=== PATIENT | male | born 1955 | race Caucasian/White ===

== ENCOUNTER 2018-12-03 20:46 | Emergency (ER) | payer SELFPAY ==
[~2018-12-03] VITALS: Ht 172.7 cm; Wt 77.3 kg
[2018-12-03 20:52] VITALS: Ht 172.7 cm; Wt 77.3 kg
[2018-12-03] MEDS ORDERED: LIPITOR40 MG (21:01)
[2018-12-03] MEDS ORDERED: TESSALON PERLE100 MG (21:01)
[2018-12-03] MEDS ORDERED: AZELASTINE137 MCG/0. (21:01)
[2018-12-03] MEDS ORDERED: ANORO ELLIPTA1 EACH INH (21:02)
[2018-12-03] MEDS ORDERED: VENTOLIN HFA18 GM (21:02)
[2018-12-03] MEDS ORDERED: COMBIVENT RESPIM4 GM INH (21:02)
[2018-12-03] MEDS ORDERED: AVODART0.5 MG (21:03)
[2018-12-03] MEDS ORDERED: POTASSIUM CHLOR8 ME1 (21:03)
[2018-12-03] MEDS ORDERED: GLUCOPHAGE500 MG (21:03)
[2018-12-03] MEDS ORDERED: FERROUS SULFAT325 MG (21:03)
[2018-12-03] MEDS ORDERED: PROTONIX40 MG (21:03)
[2018-12-03] MEDS ORDERED: PEPCID AC20 MG (21:04)
[2018-12-03] MEDS ORDERED: BAYER CHEWABLE81 MG (21:04)
[2018-12-03] MEDS ORDERED: NITROSTAT0.4 MG (21:04)
[2018-12-03] MEDS ORDERED: ELIQUIS5 MG (21:04)
[2018-12-03] MEDS ORDERED: NEURONTIN 400400 MG (21:05)
[2018-12-03 21:26] LABS: BASOPHILS 0.2 % (0-2); EOSINOPHILS 2.1 % (0-7); HEMATOCRIT 38.8 % (42.0-54.0); HEMOGLOBIN 12.9 g/dL (13.5-17.5); IMMATURE GRANULOCYTES 0.2 % (0-5); MCH 31.4 pg (26.0-34.0); MCHC 33.2 g/dL (31.0-37.0); MCV 94.4 fL (80.0-100.0); MEAN PLATELET VOLUME 10.3 fL (7.4-10.4); MONOCYTES 7.6 % (2-11); NEUTROPHILS 55.9 % (40-80); PLATELET COUNT 187 10x3/uL (130-400); RBC 4.11 10x6/uL (4.20-6.10); RDW 13.2 % (11.5-14.5); WBC 5.3 10x3/uL (4.8-10.8)
[2018-12-03 21:41] LABS: ALBUMIN 3.1 g/dL (3.4-5.0); ALKALINE PHOSPHATASE 88 U/L (46-116); ALT (SGPT) 14 U/L (10-68); BILIRUBIN - TOTAL 0.29 mg/dL (0.2-1.3); CALC OSMOLALITY 287 mosm/kg (275-300); CALCIUM 8.9 mg/dL (8.5-10.1); CARBON DIOXIDE 27.1 mmol/L (21.0-32.0); CHLORIDE - SERUM 108 mmol/L (98-107); CREATININE - SERUM 1.1 mg/dL (0.6-1.3); GLUCOSE 133 mg/dL (74-106); POTASSIUM - SERUM 3.5 mmol/L (3.5-5.1); PROTEIN - SERUM 6.2 g/dL (6.4-8.2); SODIUM 143 mmol/L (136-145); UREA NITROGEN 16 mg/dL (7-18); eGFR NON AFRICAN AMERICAN 71 mL/min (90-120)
[2018-12-03 21:52] LABS: CKMB 0.5 U/L (0.0-3.6); CREATINE KINASE 49 UL (21-232); TROPONIN-I < 0.017 ng/mL (0.000-0.060)
[2018-12-03 21:53] LABS: APTT 26.1 SECONDS (22.8-39.4); INR 1.12 (0.85-1.17); PROTIME 13.9 SECONDS (11.6-15.0)
[2018-12-03] MEDS ORDERED: ULTRAM50 MG PO (22:15)
[2018-12-03 22:56] VITALS: BP 106/68
== END 2018-12-03 22:56 | disposition home or self-care (01) ==
LOC: D.ER 20:46
PROVIDERS: Emergency Medicine
DX: R07.9 Chest pain, unspecified (principal); I25.10 Atherosclerotic heart disease of native coronary artery without angina pectoris; R06.00 Dyspnea, unspecified; E11.9 Type 2 diabetes mellitus without complications; I50.9 Heart failure, unspecified; Z95.0 Presence of cardiac pacemaker; J44.9 Chronic obstructive pulmonary disease, unspecified; Z99.81 Dependence on supplemental oxygen

== ENCOUNTER 2018-12-10 23:37 | Emergency (ER) | payer SELFPAY ==
[~2018-12-10] VITALS: Ht 172.7 cm; Wt 77.3 kg
[~2018-12-10 23:37] MED LIST: ANORO ELLIPTA1 EACH INH; AVODART0.5 MG; AZELASTINE137 MCG/0.; BAYER CHEWABLE81 MG; COMBIVENT RESPIM4 GM INH; ELIQUIS5 MG; FERROUS SULFAT325 MG; GLUCOPHAGE500 MG; LIPITOR40 MG; NEURONTIN 400400 MG; NITROSTAT0.4 MG; PEPCID AC20 MG; POTASSIUM CHLOR8 ME1; PROTONIX40 MG; TESSALON PERLE100 MG; ULTRAM50 MG PO; VENTOLIN HFA18 GM
[2018-12-10 23:40] VITALS: Ht 172.7 cm; Wt 77.3 kg
[2018-12-11 00:10] LABS: HEMATOCRIT 40.7 % (42.0-54.0); HEMOGLOBIN 13.9 g/dL (13.5-17.5); MCH 31.4 pg (26.0-34.0); MCHC 34.2 g/dL (31.0-37.0); MCV 91.9 fL (80.0-100.0); MEAN PLATELET VOLUME 10.3 fL (7.4-10.4); NEUTROPHILS 57.2 % (40-80); PLATELET COUNT 164 10x3/uL (130-400); RBC 4.43 10x6/uL (4.20-6.10); RDW 13.1 % (11.5-14.5)
[2018-12-11 00:35] LABS: ALBUMIN 3.5 g/dL (3.4-5.0); ALKALINE PHOSPHATASE 96 U/L (46-116); ALT (SGPT) 18 U/L (10-68); BILIRUBIN - TOTAL 0.28 mg/dL (0.2-1.3); CALC OSMOLALITY 285 mosm/kg (275-300); CALCIUM 8.9 mg/dL (8.5-10.1); CARBON DIOXIDE 24.7 mmol/L (21.0-32.0); CHLORIDE - SERUM 106 mmol/L (98-107); CREATININE - SERUM 1.2 mg/dL (0.6-1.3); GLUCOSE 121 mg/dL (74-106); POTASSIUM - SERUM 4.3 mmol/L (3.5-5.1); PROTEIN - SERUM 6.9 g/dL (6.4-8.2); SODIUM 141 mmol/L (136-145); UREA NITROGEN 24 mg/dL (7-18); eGFR NON AFRICAN AMERICAN 64 mL/min (90-120)
[2018-12-11 00:43] LABS: CKMB 0.5 U/L (0.0-3.6); CREATINE KINASE 51 UL (21-232); PRO BNP 41 pg/mL (0-125); TROPONIN-I < 0.017 ng/mL (0.000-0.060)
[2018-12-11 00:46] LABS: APTT 24.4 SECONDS (22.8-39.4); INR 1.07 (0.85-1.17); PROTIME 13.8 SECONDS (11.6-15.0)
[2018-12-11] MEDS ORDERED: VENTOLIN HFA18 GM INH (01:49)
[2018-12-11] MEDS ORDERED: VIBRAMYCIN 100100 MG PO (01:49)
[2018-12-11 01:58] LABS: D-DIMER-QUANTITATIVE < 0.20 mg/L (<0.20)
[2018-12-11 02:44] VITALS: BP 101/64
== END 2018-12-11 02:44 | disposition home or self-care (01) ==
LOC: D.ER 23:37
PROVIDERS: Family Medicine
DX: J44.1 Chronic obstructive pulmonary disease with (acute) exacerbation (principal); Z79.01 Long term (current) use of anticoagulants; E11.9 Type 2 diabetes mellitus without complications; R07.81 Pleurodynia; R06.02 Shortness of breath; Z99.81 Dependence on supplemental oxygen

== ENCOUNTER 2019-03-30 11:48 | Emergency (ER) | payer MEDICARE, MEDICAID ==
[~2019-03-30 11:48] MED LIST changes: +VENTOLIN HFA18 GM INH; +VIBRAMYCIN 100100 MG PO
[2019-03-30 11:50] VITALS: BMI 26.8
[2019-03-30 12:11] LABS: HEMATOCRIT 39.1 % (42.0-54.0); HEMOGLOBIN 13.4 g/dL (13.5-17.5); LYMPHOCYTES 39.3 % (15-50); MCH 31.6 pg (26.0-34.0); MCHC 34.3 g/dL (31.0-37.0); MCV 92.2 fL (80.0-100.0); MEAN PLATELET VOLUME 9.5 fL (7.4-10.4); NEUTROPHILS 52.6 % (40-80); PLATELET COUNT 173 10x3/uL (130-400); RBC 4.24 10x6/uL (4.20-6.10); RDW 14.3 % (11.5-14.5); WBC 4.5 10x3/uL (4.8-10.8)
[2019-03-30 12:27] LABS: INR 1.03 (0.85-1.17)
[2019-03-30 12:28] LABS: ALBUMIN 3.4 g/dL (3.4-5.0); ALKALINE PHOSPHATASE 87 U/L (46-116); ALT (SGPT) 27 U/L (10-68); BILIRUBIN - TOTAL 0.42 mg/dL (0.2-1.3); CALC OSMOLALITY 281 mosm/kg (275-300); CALCIUM 8.9 mg/dL (8.5-10.1); CARBON DIOXIDE 23.9 mmol/L (21.0-32.0); CHLORIDE - SERUM 107 mmol/L (98-107); CREATININE - SERUM 1.2 mg/dL (0.6-1.3); GLUCOSE 106 mg/dL (74-106); POTASSIUM - SERUM 4.2 mmol/L (3.5-5.1); PROTEIN - SERUM 6.9 g/dL (6.4-8.2); SODIUM 140 mmol/L (136-145); UREA NITROGEN 22 mg/dL (7-18); eGFR NON AFRICAN AMERICAN 64 mL/min (90-120)
[2019-03-30 12:37] LABS: CKMB 2.2 U/L (0.0-3.6); CREATINE KINASE 152 UL (21-232); MAGNESIUM - SERUM 1.8 mg/dL (1.8-2.4); TROPONIN-I < 0.017 ng/mL (0.000-0.060)
[2019-03-30 13:53] VITALS: BP 113/64
== END 2019-03-30 13:56 | disposition home or self-care (01) ==
LOC: D.ER 11:48
PROVIDERS: Emergency Medicine
DX: R10.11 Right upper quadrant pain (principal); R07.89 Other chest pain

== ENCOUNTER 2019-09-09 10:45 | Emergency (ER) | payer OTHER, MEDICAID ==
[~2019-09-09] VITALS: Ht 172.7 cm; Wt 77.3 kg
[~2019-09-09 10:45] MED LIST changes: -BAYER CHEWABLE81 MG; +BAYER CHEWABLE81 MG PO; -ELIQUIS5 MG; +ELIQUIS5 MG PO; -LIPITOR40 MG; +LIPITOR40 MG PO; +NEURONTIN 300300 MG PO; -NEURONTIN 400400 MG; -PEPCID AC20 MG; +PEPCID AC20 MG PO; -PROTONIX40 MG; +PROTONIX40 MG PO
[2019-09-09 11:01] VITALS: Ht 172.7 cm; Wt 77.3 kg
[2019-09-09] MEDS ORDERED: ULTRAM50 MG PO (14:31)
[2019-09-09 14:59] VITALS: BP 126/74
[2019-09-16 09:36] VITALS: Ht 172.7 cm; Wt 77.3 kg
== END 2019-09-09 15:00 | disposition home or self-care (01) ==
LOC: D.ER 10:45
DX: G89.29 Other chronic pain (principal)

== ENCOUNTER 2019-09-14 17:59 | Inpatient (IN) | payer OTHER, MEDICAID ==
[~2019-09-14] VITALS: Ht 172.7 cm; Wt 77.1 kg
[2019-09-14 18:00] VITALS: BP 94/65
--- NOTE | 2019-09-14 19:01 | NUR ---
HAND OFF REPORT GIVEN TO PAPO ROBERTSON
[2019-09-14 19:04] LABS: BASOPHILS 0.1 % (0-2); EOSINOPHILS 0.2 % (0-7); HEMATOCRIT 38.7 % (42.0-54.0); HEMOGLOBIN 12.7 g/dL (13.5-17.5); IMMATURE GRANULOCYTES 0.3 % (0-5); LYMPHOCYTES 10.4 % (15-50); MCH 30.1 pg (26.0-34.0); MCHC 32.8 g/dL (31.0-37.0); MCV 91.7 fL (80.0-100.0); MEAN PLATELET VOLUME 10.1 fL (7.4-10.4); RBC 4.22 10x6/uL (4.20-6.10); RDW 14.4 % (11.5-14.5); WBC 14.9 10x3/uL (4.8-10.8)
[2019-09-14 19:05] LABS: PLATELET COUNT 211 10x3/uL (130-400)
[2019-09-14 19:14] LABS: APTT 26.9 SECONDS (22.8-39.4); INR 1.17 (0.85-1.17); PROTIME 14.4 SECONDS (11.6-15.0)
[2019-09-14 19:29] LABS: ALBUMIN 3.1 g/dL (3.4-5.0); ALKALINE PHOSPHATASE 82 U/L (46-116); ALT (SGPT) 30 U/L (10-68); BILIRUBIN - TOTAL 0.68 mg/dL (0.2-1.3); CALC OSMOLALITY 282 mosm/kg (275-300); CALCIUM 8.8 mg/dL (8.5-10.1); CARBON DIOXIDE 26.7 mmol/L (21.0-32.0); CHLORIDE - SERUM 106 mmol/L (98-107); CREATININE - SERUM 1.1 mg/dL (0.6-1.3); GLUCOSE 101 mg/dL (74-106); POTASSIUM - SERUM 3.7 mmol/L (3.5-5.1); PROTEIN - SERUM 6.6 g/dL (6.4-8.2); SODIUM 142 mmol/L (136-145); UREA NITROGEN 12 mg/dL (7-18); eGFR NON AFRICAN AMERICAN 71 mL/min (90-120)
[2019-09-14 19:30] VITALS: BP 94/68
[2019-09-14 19:38] LABS: CREATINE KINASE 108 UL (21-232); MAGNESIUM - SERUM 1.8 mg/dL (1.8-2.4); TROPONIN-I < 0.017 ng/mL (0.000-0.060)
--- NOTE | 2019-09-14 20:07 | NUR ---
PT ASKED FOR URINE SAMPLE, STATES "IM TRYING TO."
[2019-09-14 20:30] VITALS: BP 98/67
--- NOTE | 2019-09-14 20:30 | NUR ---
PT TO CT.
[2019-09-15] VITALS (7 sets, daily range): BP systolic 89–116; BP diastolic 60–77; BMI 25.9
[2019-09-15 02:33] LABS: APPEARANCE CLEAR (CLEAR); BILIRUBIN NEGATIVE (NEGATIVE); COLOR YELLOW (YELLOW); GLUCOSE NEGATIVE (NEGATIVE); KETONE NEGATIVE (NEGATIVE); NITRITE NEGATIVE (NEGATIVE); PROTEIN NEGATIVE (NEGATIVE); SPECIFIC GRAVITY 1.005 (1.005-1.020); UROBILINOGEN NORMAL (NORMAL)
[2019-09-15 05:55] LABS: BASOPHILS 0.1 % (0-2); EOSINOPHILS 1.3 % (0-7); HEMATOCRIT 36.1 % (42.0-54.0); HEMOGLOBIN 11.7 g/dL (13.5-17.5); IMMATURE GRANULOCYTES 0.2 % (0-5); LYMPHOCYTES 17.7 % (15-50); MCH 30.1 pg (26.0-34.0); MCHC 32.4 g/dL (31.0-37.0); MCV 92.8 fL (80.0-100.0); MEAN PLATELET VOLUME 10.4 fL (7.4-10.4); MONOCYTES 5.3 % (2-11); NEUTROPHILS 75.4 % (40-80); PLATELET COUNT 195 10x3/uL (130-400); RBC 3.89 10x6/uL (4.20-6.10); RDW 14.8 % (11.5-14.5); WBC 11.6 10x3/uL (4.8-10.8)
[2019-09-15 06:36] LABS: CALCIUM 8.3 mg/dL (8.5-10.1); CARBON DIOXIDE 25.7 mmol/L (21.0-32.0); CREATININE - SERUM 1.2 mg/dL (0.6-1.3); MAGNESIUM - SERUM 1.9 mg/dL (1.8-2.4); PHOSPHOROUS 3.4 mg/dL (2.5-4.9); POTASSIUM - SERUM 3.7 mmol/L (3.5-5.1)
--- NOTE | 2019-09-15 09:00 | NUR ---
ALERT AND ORIENTED X3 WITH GENERALIZED MUSCLE PAIN. GOOD ROM OF EXT. EIVF INFUSING TO LT. F/A AT PRESCRIBD RATE WITH NO S/S OF INFECTION/INFILTRATION. TELEMETRY INTACT. MORPHINE GIVEN FOR PAIN AND EFFECTIVE. ENCOURAQGED TO USE CALL LIGHT FOR ASSIST.
--- NOTE | 2019-09-15 14:18 | MORECARE ---
CASE MANAGEMENT DISCHARGE SUMMARY PATIENT: KARLA MARTIN UNIT: [id number] ADM DATE: 09/14/19 AGE: 64 : 53 SEX: M ROOM/BED: D.2227 AUTHOR: NICHOLASDOC PHYSICIAN: REFERRING PHYSICIAN: KYLIE ADAMS MD DATE OF SERVICE: 09/15/19 Discharge Plan Patient Name: KARLA MARTIN Facility: [facility]:[place] : 1955 Planned Disposition: Home Anticipated Discharge Date: Discharge Date: Expected LOS: Initial Reviewer: [email or web address] Initial Review Date: 09/15/2019 Generated: 09/15/19 3:18 pm DCPIA - Discharge Planning Initial Assessment Updated by [id number]: Tara Whitley on 09/15/19 2:18 pm * Is the patient Alert and Oriented? Yes * How many steps to enter\exit or inside your home? 0/0 * PCP Imani De La Rosa in [place] * Pharmacy [facility] on [facility] * Preadmission Environment Home with Family * ADLs Partial Dependent * Partial ADLs (Assistance needed) Ambulation Bathing Dressing Medication Management * Equipment Cane Other Shower Chair * Other Equipment Walking boot * List name and contact numbers for known caregivers / representatives who currently or will assist patient after discharge: Jie DTR - [phone] Jered Arreola [facility] [phone] * Verbal permission to speak to the caregivers and representatives has been obtained from the patient. Yes * Community resources currently utilized None * Additional services required to return to the preadmission environment? Yes * Can the patient safely return to the preadmission environment? Yes * Has this patient been hospitalized within the prior 30 days at any hospital? No Coverage Notice Reviewer: [id number] Keyona Whitley Notice Issued Date-Time: 09/15/2019 13:45 Notice Type: Medicare Outpatient Observation Notice Notice Delivered To: Patient Relationship to Patient: Self Occupational Health Technician Name: Delivery Method: HAND - Hand Delivered Aleida Days: Prior Verbal Notification: Recipient Understood Notice: Yes Recipient Signature: Yes Med Rec Note Co-signed by Attending: Coverage Notice Comment: RAMÍREZ explained, signed, given, copy placed in MR Reviewer: [id number] Keyona Whitley Notice Issued Date-Time: 09/15/2019 14:03 Notice Type: Patient Choice Letter Notice Delivered To: Patient Relationship to Patient: Self Occupational Health Technician Name: Delivery Method: HAND - Hand Delivered Aleida Days: Prior Verbal Notification: Recipient Understood Notice: Yes Recipient Signature: Yes Med Rec Note Co-signed by Attending: Coverage Notice Comment: JOSE F for Gaudencio Patient Name: KARLA MARTIN Page [id number] at 1418 All edits/amendments must be made on the electronic document DICTATION DATE: 09/15/191417 : AGUEDA 09/15/191417 RPT#: [id number] DC DATE: STATUS: ADM IN [facility] [address] [place] [address] END OF REPORT
--- NOTE | 2019-09-15 14:29 | MORECARE ---
CASE MANAGEMENT DISCHARGE SUMMARY PATIENT: KARLA MARTIN UNIT: [id number] ADM DATE: 09/14/19 AGE: 64 : 53 SEX: M ROOM/BED: D.2227 AUTHOR: NICHOLASDOC PHYSICIAN: REFERRING PHYSICIAN: KYLIE ADAMS MD DATE OF SERVICE: 09/15/19 Discharge Plan Patient Name: KARLA MARTIN Facility: [facility]:[place] : 1955 Planned Disposition: Home Anticipated Discharge Date: Discharge Date: Expected LOS: Initial Reviewer: [id number] Initial Review Date: 09/15/2019 Generated: 09/15/19 3:29 pm Comments DCP- Discharge Planning Updated by [id number]: Tara Whitley on 09/15/19 1:[address] Patient Name: KARLA MARTIN Admission Status: ER Accout number: [id number] Admission Date: 09-14-2019 : 1955 Admission Diagnosis: Attending: KYLIE ADAMS Current LOS: 1 Anticipated DC Date: Planned Disposition: Home Primary Insurance: [employer] Discharge Planning Comments: CM met with patient to discuss discharge planning/needs, he is alone in the room. He states he lives with his daughter in a one story home. He states his daughter assists him with "washing my back", dressing and medication management. States that he broke his foot about a month ago and has been walking with a cane and a walking boot. He states that he no longer drives, so he mostly walks to where he needs to go. He states he is trying to purchase a scooter so he can get around better. I informed him that his family may be able to look at [employer] for needed medical equipment that insurance will not pay for. I discussed rehab, SNF, home health and DME and he states other than oxygen, he does not have any need. Walk test was done and he is 86% on room air. I called Nadeem with Gaudencio and she states she will be here this afternoon. CM will cotninue to follow and assist with discharge plannig/needs. Material Damage Appraiser: Tara Whitley DCPIA - Discharge Planning Initial Assessment Updated by [id number]: Tara Whitley on 09/15/19 2:18 pm * Is the patient Alert and Oriented? Yes * How many steps to enter\\exit or inside your home? 0/0 * PCP Imani De La Rosa in [place] * [facility]acy [facility] * Preadmission Environment Home with Family * ADLs Partial Dependent * Partial ADLs (Assistance needed) Ambulation Bathing Dressing Medication Management * Equipment Cane Other Shower Chair * Other Equipment Walking boot * List name and contact numbers for known caregivers / representatives who currently or will assist patient after discharge: Jie DTR - [phone] Jered Arreola [facility] - [phone] * Verbal permission to speak to the caregivers and representatives has been obtained from the patient. Yes * Community resources currently utilized None * Additional services required to return to the preadmission environment? Yes * Can the patient safely return to the preadmission environment? Yes * Has this patient been hospitalized within the prior 30 days at any hospital? No Coverage Notice Reviewer: [id number] Keyona Whitley Notice Issued Date-Time: 09/15/2019 13:45 Notice Type: Medicare Outpatient Observation Notice Notice Delivered To: Patient Relationship to Patient: Self Manager Nuclear Name: Delivery Method: HAND - Hand Delivered Aleida Days: Prior Verbal Notification: Recipient Understood Notice: Yes Recipient Signature: Yes Med Rec Note Co-signed by Attending: Coverage Notice Comment: DARRELL explained, signed, given, copy placed in MR Reviewer: [id number] Keyona Whitley Notice Issued Date-Time: 09/15/2019 14:03 Notice Type: Patient Choice Letter Notice Delivered To: Patient Relationship to Patient: Self Manager Nuclear Name: Delivery Method: HAND - Hand Delivered Aleida Days: Prior Verbal Notification: Recipient Understood Notice: Yes Recipient Signature: Yes Med Rec Note Co-signed by Attending: Coverage Notice Comment: JOSE F for Gaudencio De La O DP export: 09/15/19 1:18 Patient Name: KARLA MARTIN Page 15533 at 1429 All edits/amendments must be made on the electronic document DICTATION DATE: 09/15/191428 BATHHOUSE ATTENDANT: AGUEDA 09/15/191428 RPT#: [id number] DC DATE: STATUS: ADM IN [facility] [address] [place] [address] END OF REPORT
--- NOTE | 2019-09-15 14:39 | MORECARE ---
CASE MANAGEMENT DISCHARGE SUMMARY PATIENT: KARLA MARTIN UNIT: [id number] ADM DATE: 09/14/19 AGE: 64 : 53 SEX: M ROOM/BED: D.2227 AUTHOR: FELISHA PETERSON PHYSICIAN: REFERRING PHYSICIAN: KYLIE ADAMS MD DATE OF SERVICE: 09/15/19 Discharge Plan Patient Name: KARLA MARTIN Facility: [facility]:[place] : 1955 Planned Disposition: Home Anticipated Discharge Date: Discharge Date: Expected LOS: Initial Reviewer: [email or web address] Initial Review Date: 09/15/2019 Generated: 09/15/19 3:38 pm Comments DCP- Discharge Planning Updated by [email or web address]: Tara Whitley on 09/15/19 1:[address] Patient is in a chronic stable state prior to discharge. CM will cotninue to follow and assist with discharge planning/needs. DCP- Discharge Planning Updated by [id number]: Tara Whitley on 09/15/19 1:[address] Patient Name: KARLA MARTIN Admission Status: ER Accout number: [id number] Admission Date: 09-14-2019 : 1955 Admission Diagnosis: Attending: KYLIE ADAMS Current LOS: 1 Anticipated DC Date: Planned Disposition: Home Primary Insurance: [employer] Discharge Planning Comments: CM met with patient to discuss discharge planning/needs, he is alone in the room. He states he lives with his daughter in a one story home. He states his daughter assists him with "washing my back", dressing and medication management. States that he broke his foot about a month ago and has been walking with a cane and a walking boot. He states that he no longer drives, so he mostly walks to where he needs to go. He states he is trying to purchase a scooter so he can get around better. I informed him that his family may be able to look at [employer] and [employer] for needed medical equipment that insurance will not pay for. I discussed rehab, SNF, home health and DME and he states other than oxygen, he does not have any need. Walk test was done and he is 86% on room air. I called Nadeem with [employer] and she states she will be here this afternoon. CM will cotninue to follow and assist with discharge plannig/needs. Sport Internship: Tara Whitley DCPIA - Discharge Planning Initial Assessment Updated by [id number]: Tara Whitley on 09/15/19 2:18 pm * Is the patient Alert and Oriented? Yes * How many steps to enter\\exit or inside your home? 0/0 * PCP Imani De La Rosa in [place] * [facility] * Preadmission Environment Home with Family * ADLs Partial Dependent * Partial ADLs (Assistance needed) Ambulation Bathing Dressing Medication Management * Equipment Cane Other Shower Chair * Other Equipment Walking boot * List name and contact numbers for known caregivers / representatives who currently or will assist patient after discharge: Jie - DTR - [phone] Jered Arreola [facility] - [phone] * Verbal permission to speak to the caregivers and representatives has been obtained from the patient. Yes * Community resources currently utilized None * Additional services required to return to the preadmission environment? Yes * Can the patient safely return to the preadmission environment? Yes * Has this patient been hospitalized within the prior 30 days at any hospital? No Coverage Notice Reviewer: [id number] Keyona Whitley Notice Issued Date-Time: 09/15/2019 13:45 Notice Type: Medicare Outpatient Observation Notice Notice Delivered To: Patient Relationship to Patient: Self Plant Tender Name: Delivery Method: HAND - Hand Delivered Aleida Days: Prior Verbal Notification: Recipient Understood Notice: Yes Recipient Signature: Yes Med Rec Note Co-signed by Attending: Coverage Notice Comment: DARRELL explained, signed, given, copy placed in MR Reviewer: [id number] Keyona Whitley Notice Issued Date-Time: 09/15/2019 14:03 Notice Type: Patient Choice Letter Notice Delivered To: Patient Relationship to Patient: Self Plant Tender Name: Delivery Method: HAND - Hand Delivered Aleida Days: Prior Verbal Notification: Recipient Understood Notice: Yes Recipient Signature: Yes Med Rec Note Co-signed by Attending: Coverage Notice Comment: JOSE F for Gaudencio Jairon DP export: 09/15/19 1:29 Patient Name: KARLA MARTNI Page 70051 at 1439 All edits/amendments must be made on the electronic document DICTATION DATE: 09/15/191437 MAGNETIC RESONANCE IMAGING DIRECTOR: AGUEDA 09/15/191437 RPT#: [id number] MS DATE: STATUS: ADM IN [facility] [address] [place] [address] END OF REPORT
--- NOTE | 2019-09-15 15:43 | MORECARE ---
CASE MANAGEMENT DISCHARGE SUMMARY PATIENT: KARLA MARTIN UNIT: [id number] ADM DATE: 09/14/19 AGE: 64 : 53 SEX: M ROOM/BED: D.2227 AUTHOR: FELISHA PETERSON PHYSICIAN: REFERRING PHYSICIAN: KYLIE ADAMS MD DATE OF SERVICE: 09/15/19 Discharge Plan Patient Name: KARLA MARTIN Facility: [facility]:[place] : 1955 Planned Disposition: Home Anticipated Discharge Date: Discharge Date: Expected LOS: Initial Reviewer: [id number] Initial Review Date: 09/15/2019 Generated: 09/15/19 4:43 pm Comments DCP- Discharge Planning Updated by [email or web address]: Tara Whitley on 09/15/19 1:[address] Patient is in a chronic stable state prior to discharge. CM will cotninue to follow and assist with discharge planning/needs. DCP- Discharge Planning Updated by [id number]: Tara Gutierrez on 09/15/19 1:[address] Patient Name: KARLA MARTIN Admission Status: ER Accout number: [id number] Admission Date: 09-14-2019 : 1955 Admission Diagnosis: Attending: KYLIE ADAMS Current LOS: 1 Anticipated DC Date: Planned Disposition: Home Primary Insurance: [employer] Discharge Planning Comments: CM met with patient to discuss discharge planning/needs, he is alone in the room. He states he lives with his daughter in a one story home. He states his daughter assists him with "washing my back", dressing and medication management. States that he broke his foot about a month ago and has been walking with a cane and a walking boot. He states that he no longer drives, so he mostly walks to where he needs to go. He states he is trying to purchase a scooter so he can get around better. I informed him that his family may be able to look at [employer] and [employer] for needed medical equipment that insurance will not pay for. I discussed rehab, SNF, home health and DME and he states other than oxygen, he does not have any need. Walk test was done and he is 86% on room air. I called Nadeem with G[employer]enc[employer] and she states she will be here this afternoon. CM will cotninue to follow and assist with discharge plannig/needs. Network Systems Administrator: Tara Whitley DCPIA - Discharge Planning Initial Assessment Updated by [email or web address]: Tara Whitley on 09/15/19 2:18 pm * Is the patient Alert and Oriented? Yes * How many steps to enter\\exit or inside your home? 0/0 * PCP Imani De La Rosa in [place] * [facility] * Preadmission Environment Home with Family * ADLs Partial Dependent * Partial ADLs (Assistance needed) Ambulation Bathing Dressing Medication Management * Equipment Cane Other Shower Chair * Other Equipment Walking boot * List name and contact numbers for known caregivers / representatives who currently or will assist patient after discharge: Jie - DTR - [phone] Jered Arreola [facility] [phone] * Verbal permission to speak to the caregivers and representatives has been obtained from the patient. Yes * Community resources currently utilized None * Additional services required to return to the preadmission environment? Yes * Can the patient safely return to the preadmission environment? Yes * Has this patient been hospitalized within the prior 30 days at any hospital? No External Providers External Provider: OTHER-OTHER Next Contact Date: Service Request Date: Service Type: Resolution: Reviewer: Comments: Coverage Notice Reviewer: [id number] Keyona Whitley Notice Issued Date-Time: 09/15/2019 13:45 Notice Type: Medicare Outpatient Observation Notice Notice Delivered To: Patient Relationship to Patient: Self Automobile Rental Agent Name: Delivery Method: HAND - Hand Delivered Aleida Days: Prior Verbal Notification: Recipient Understood Notice: Yes Recipient Signature: Yes Med Rec Note Co-signed by Attending: Coverage Notice Comment: DARRELL explained, signed, given, copy placed in MR Reviewer: [id number] Keyona Whitley Notice Issued Date-Time: 09/15/2019 14:03 Notice Type: Patient Choice Letter Notice Delivered To: Patient Relationship to Patient: Self Automobile Rental Agent Name: Delivery Method: HAND - Hand Delivered Aleida Days: Prior Verbal Notification: Recipient Understood Notice: Yes Recipient Signature: Yes Med Rec Note Co-signed by Attending: Coverage Notice Comment: JOSE F for Gaudencio Last DP export: 09/15/19 1:39 Patient Name: KARLA MARTIN Page [id number] at 1543 All edits/amendments must be made on the electronic document DICTATION DATE: 09/15/191542 SUPERVISOR POULTRY FARM: AGUEDA 09/15/191542 RPT#: [id number] DC DATE: STATUS: ADM IN [facility] [address] [place] [address] END OF REPORT
[2019-09-16] VITALS: BP 99/61
--- NOTE | 2019-09-16 01:21 | NUR ---
PT RESTING IN BED. EYES CLOSED. NO SIGNS OF DISTRESS. BREATHING EVEN AND UNLABORED. IV SITE LT FA DRESSING CLEAN DRY AND INTACT. NO SIGNS OF INFECTION. SKIN CLEAN DRY AND INTACT. 2LO2 NASAL CANNULA. BOWEL SOUNDS ACTIVE. TELE MONITOR ON 64 NORMAL SINUS. SKIN CLEAN DRY AND INTACT. WILL CONTINUE PLAN OF CARE. CALL LIGHT IN REACH. BED LOWERED AND LOCKED. BED RAILS UPX2. BED ALARM ON.
--- NOTE | 2019-09-16 01:49 | NUR ---
I have reviewed this patient and I concur with the Shift Assessment completed by the Licensed Practical Nurse today this shift.
[2019-09-16 04:00] VITALS: BP 124/80
[2019-09-16 05:15] LABS: BASOPHILS 0.1 % (0-2); EOSINOPHILS 2.3 % (0-7); HEMATOCRIT 36.9 % (42.0-54.0); HEMOGLOBIN 11.6 g/dL (13.5-17.5); IMMATURE GRANULOCYTES 0.1 % (0-5); MCH 29.4 pg (26.0-34.0); MCHC 31.4 g/dL (31.0-37.0); MCV 93.7 fL (80.0-100.0); MEAN PLATELET VOLUME 10.3 fL (7.4-10.4); MONOCYTES 6.3 % (2-11); NEUTROPHILS 68.2 % (40-80); PLATELET COUNT 217 10x3/uL (130-400); RBC 3.94 10x6/uL (4.20-6.10); RDW 14.6 % (11.5-14.5)
[2019-09-16 05:19] LABS: WBC 6.8 10x3/uL (4.8-10.8)
[2019-09-16 05:40] LABS: CALC OSMOLALITY 281 mosm/kg (275-300); CALCIUM 8.2 mg/dL (8.5-10.1); CARBON DIOXIDE 23.8 mmol/L (21.0-32.0); CHLORIDE - SERUM 110 mmol/L (98-107); GLUCOSE 88 mg/dL (74-106); MAGNESIUM - SERUM 1.7 mg/dL (1.8-2.4); PHOSPHOROUS 3.4 mg/dL (2.5-4.9); POTASSIUM - SERUM 3.7 mmol/L (3.5-5.1); SODIUM 142 mmol/L (136-145); UREA NITROGEN 12 mg/dL (7-18); eGFR NON AFRICAN AMERICAN 79 mL/min (90-120)
--- NOTE | 2019-09-16 08:00 | NUR ---
ALERT AND ORIENTED X3 WITH GOOD ROM OF EXT. X4 WITH GENERALIZED WEAKNESS. LUNGS CTA WITH HRRR. TELEMETRY INTACT. FALL PRECAUTIONS IN PLACE AND ENCOURAGED INCENTIVE SPIROMETRY. IVF INFUSING AT PRESCRIBED RATE WITH NO S/S OF INFECTION/ INFILTRATION. ENCOURAGED TO USE CALL LIGHT FOR ASSIST.
[2019-09-16 08:28] VITALS: BP 98/58
[2019-09-16 09:36] VITALS: Ht 172.7 cm; Wt 77.1 kg
--- NOTE | 2019-09-16 11:00 | MORECARE ---
CASE MANAGEMENT DISCHARGE SUMMARY PATIENT: KARLA MARTIN UNIT: [id number] ADM DATE: 09/15/19 AGE: 64 : 51 SEX: M ROOM/BED: D.2227 AUTHOR: FELISHA PETERSON PHYSICIAN: REFERRING PHYSICIAN: KYLIE ADAMS MD DATE OF SERVICE: 09/16/19 Discharge Plan Patient Name: KARLA MARTIN Facility: [facility]:[place] : 1955 Planned Disposition: Home Anticipated Discharge Date: Discharge Date: Expected LOS: Initial Reviewer: [id number] Initial Review Date: 09/15/2019 Generated: 09/16/19 12:00 pm DCP- Discharge Planning Updated by [id number]: Rosangela Ceja on 09/16/19 9:[address] Telephone call from familia Busch/Gaudencio requesting a CB when patient has a discharge order. Portable O2 has been delivered to patient's room and home O2 will be delivered upon notification of DC order. . DCP- Discharge Planning Updated by [id number]: Tara Whitley on 09/15/19 1:[address] Patient is in a chronic stable state prior to discharge. CM will cotninue to follow and assist with discharge planning/needs. DCP- Discharge Planning Updated by [id number]: Tarakatrina Whitley on 09/15/19 1:[address] Patient Name: KARLA MARTIN Admission Status: ER Accout number: [id number] Admission Date: 09-14-2019 : 1955 Admission Diagnosis: Attending: KYLIE ADAMS Current LOS: 1 Anticipated DC Date: Planned Disposition: Home Primary Insurance: [employer] Discharge Planning Comments: CM met with patient to discuss discharge planning/needs, he is alone in the room. He states he lives with his daughter in a one story home. He states his daughter assists him with "washing my back", dressing and medication management. States that he broke his foot about a month ago and has been walking with a cane and a walking boot. He states that he no longer drives, so he mostly walks to where he needs to go. He states he is trying to purchase a scooter so he can get around better. I informed him that his family may be able to look at [facility] [employer] and [facility] [employer] for needed medical equipment that insurance will not pay for. I discussed rehab, SNF, home health and DME and he states other than oxygen, he does not have any need. Walk test was done and he is 86% on room air. I called Nadeem with Gaudencio and she states she will be here this afternoon. CM will cotninue to follow and assist with discharge plannig/needs. Industrial Relations Counselor: Tara Whitley DCPIA - Discharge Planning Initial Assessment Updated by [id number]: Tara Whitley on 09/15/19 2:18 pm * Is the patient Alert and Oriented? Yes * How many steps to enter\\exit or inside your home? 0/0 * PCP Imani De La Rosa in [place] * Pharmacy [facility] * Preadmission Environment Home with Family * ADLs Partial Dependent * Partial ADLs (Assistance needed) Ambulation Bathing Dressing Medication Management * Equipment Cane Other Shower Chair * Other Equipment Walking boot * List name and contact numbers for known caregivers / representatives who currently or will assist patient after discharge: [facility] - [phone] Jered Arreola [facility] [phone] * Verbal permission to speak to the caregivers and representatives has been obtained from the patient. Yes * Community resources currently utilized None * Additional services required to return to the preadmission environment? Yes * Can the patient safely return to the preadmission environment? Yes * Has this patient been hospitalized within the prior 30 days at any hospital? No Coverage Notice Reviewer: [id number] Keyona Whitley Notice Issued Date-Time: 09/15/2019 13:45 Notice Type: Medicare Outpatient Observation Notice Notice Delivered To: Patient Relationship to Patient: Self Windsmith Name: Delivery Method: HAND - Hand Delivered Aleida Days: Prior Verbal Notification: Recipient Understood Notice: Yes Recipient Signature: Yes Med Rec Note Co-signed by Attending: Coverage Notice Comment: DARRELL explained, signed, given, copy placed in MR Reviewer: [id number] Keyona Whitley Notice Issued Date-Time: 09/15/2019 14:03 Notice Type: Patient Choice Letter Notice Delivered To: Patient Relationship to Patient: Self Windsmith Name: Delivery Method: HAND - Hand Delivered Aleida Days: Prior Verbal Notification: Recipient Understood Notice: Yes Recipient Signature: Yes Med Rec Note Co-signed by Attending: Coverage Notice Comment: JOSE F for Gaudencio Last DP export: 09/15/19 2:43 Patient Name: KARLA MARTIN Page [phone] at 1100 All edits/amendments must be made on the electronic document DICTATION DATE: 09/16/19 1100 KILN FIRER HELPER: AGUEDA 09/16/19 1100 RPT#: [id number] DC DATE: STATUS: ADM IN [facility] [address] [place] [address] END OF REPORT
[2019-09-16 13:15] VITALS: BP 121/78
[2019-09-16 16:36] VITALS: BP 121/77
--- NOTE | 2019-09-16 18:30 | NUR ---
PT C/O TENDERNESS TO CHEST WALL ON PALPATION. SKIN WARM AND DRY. LUNGS CTA MORPHINE GIVEN AND EFFECTIVE FOR PAIN MANAGEMENT. RESP. EVEN AND UNLABORED.
[2019-09-16 20:22] VITALS: BP 109/71
[2019-09-17 00:21] VITALS: BP 117/78
--- NOTE | 2019-09-17 02:04 | NUR ---
PT RESTING IN BED. EYES CLOSED. NO SIGNS OF DISTRESS. BREATHING EVEN AND UNLABORED. IV SITE RT UPPER ARM. DRESSING CLEAN DRY AND INTACT. NO SIGNS OF INFECTION. SKIN CLEAN DRY AND INTACT. 2LO2 NASAL CANNULA. LUNG SOUNDS CLEAR. BOWEL SOUNDS ACTIVE. SCDS ON. WILL CONTINUE PLAN OF CARE. CALL LIGHT IN REACH. BED LOWERED AND LOCKED. BED RAILS UPX2.
[2019-09-17 04:45] VITALS: BP 116/76
[2019-09-17 06:20] LABS: BASOPHILS 0.2 % (0-2); EOSINOPHILS 2.7 % (0-7); HEMATOCRIT 36.9 % (42.0-54.0); HEMOGLOBIN 11.8 g/dL (13.5-17.5); IMMATURE GRANULOCYTES 0.2 % (0-5); LYMPHOCYTES 32.2 % (15-50); MCH 29.7 pg (26.0-34.0); MCV 92.9 fL (80.0-100.0); MEAN PLATELET VOLUME 10.5 fL (7.4-10.4); MONOCYTES 7.2 % (2-11); NEUTROPHILS 57.5 % (40-80); PLATELET COUNT 223 10x3/uL (130-400); RBC 3.97 10x6/uL (4.20-6.10); RDW 14.4 % (11.5-14.5); WBC 5.3 10x3/uL (4.8-10.8)
[2019-09-17 06:37] LABS: CALC OSMOLALITY 282 mosm/kg (275-300); CALCIUM 8.3 mg/dL (8.5-10.1); CARBON DIOXIDE 24.6 mmol/L (21.0-32.0); CHLORIDE - SERUM 110 mmol/L (98-107); CREATININE - SERUM 0.9 mg/dL (0.6-1.3); GLUCOSE 104 mg/dL (74-106); MAGNESIUM - SERUM 1.9 mg/dL (1.8-2.4); PHOSPHOROUS 3.6 mg/dL (2.5-4.9); POTASSIUM - SERUM 3.9 mmol/L (3.5-5.1); SODIUM 142 mmol/L (136-145); UREA NITROGEN 12 mg/dL (7-18); eGFR NON AFRICAN AMERICAN 90 mL/min (90-120)
--- NOTE | 2019-09-17 07:42 | NUR ---
ALERT AND ORIENTED. LUNGS DIMINISHED TO BLL. HEART SOUNDS S1 AND S2 HEARD IN ALL GARBER. BOWEL SOUNDS ACTIVE X 4. SKIN INTACT WITHOUT REDNESS. IV TO ARGENIS PATENT WITHOUT REDNESS. O2 IN PLACE AT 2L. DENIES PAIN. DENIES NEEDS. BED LOW. CALL UMANZOR AND PERSONAL ITEMS IN REACH. WILL CONTINUE TO MONITOR.
[2019-09-17 08:25] VITALS: BP 105/69
--- NOTE | 2019-09-17 09:48 | NUR ---
TELEMETRY SHOWS SR 61.
--- NOTE | 2019-09-17 09:58 | NUR ---
RESTING IN BED. DENIES NEEDS. WILL CONTINUE TO MONITOR.
[2019-09-17 12:38] VITALS: BP 119/71
--- NOTE | 2019-09-17 12:55 | NUR ---
UP IN CHAIR AT BEDSIDE EATING LUNCH. C/O NAUSEA. PRN ZOFRAN GIVEN. DENIES FURTHER NEEDS.
--- NOTE | 2019-09-17 15:33 | NUR ---
RESTING IN BED. DENIES NEEDS. WILL CONTINUE TO MONITOR.
[2019-09-17 16:09] VITALS: BP 100/64
--- NOTE | 2019-09-17 16:52 | NUR ---
RESTING IN BED. DENIES NEEDS. BED LOW. FALL PRECAUTIONS IN PLACE. CALL UMANZOR AND PERSONAL ITEMS IN REACH. WILL CONTINUE TO MONITOR.
--- NOTE | 2019-09-17 19:15 | NUR ---
RESTING WITH EYES CLOSED WHEN ENTERING THE ROOM. AROUSES TO VERBAL STIMULI. PATIENT ALERT AND ORIENTED WHEN WOKEN. DENIES PAIN AT THIS TIME. WEARING 2 L NASAL CANNULA. LEFT LOWER LOBE PRESENTS WITH SLIGHT CRACKLES UPON AUSCULTATION. BILATERAL LOBES SOUND DIMINISHED. PATIENT HAS A RARE NON PRODUCTIVE COUGH. HAS OLD FRACTURE TO THE LEFT LOWER EXTREMETY HAS BOOT IN ROOM BUT NOT CURRENTLY WEARING. SCD'S ARE ON. FALL PRECAUTIONS IN PLACE. RIGHT UPPER ARM IV THAT IS INFUSING NS @ 75. SPOKE WITH PATIENT ABOUT UPCOMING MEDICATIONS. DENIES NEED FOR FURTHER EDUCATION. WEARING TELE MONITOR. CURRENTLY 97 SINUS RHYTHM. PATIENT HAS CALL LIGHT IN HAND. VERBALIZES HOW TO USE. CPOC.
[2019-09-17 21:09] VITALS: BP 115/73
--- NOTE | 2019-09-17 21:30 | NUR ---
ADMINISTERED HS MEDICATIONS. PATIENT REQUESTED PRN PAIN MEDICINE. ADMINISTERED PER ORER. TOLERATED WELL. DENIES FURTHER NEEDS.
[2019-09-18 00:53] VITALS: BP 109/66
--- NOTE | 2019-09-18 02:34 | NUR ---
I have reviewed this patient and I concur with the Shift Assessment completed by the Licensed Practical Nurse today this shift.
[2019-09-18 04:47] VITALS: BP 126/79
[2019-09-18 05:31] LABS: CALC OSMOLALITY 286 mosm/kg (275-300); CALCIUM 8.5 mg/dL (8.5-10.1); CARBON DIOXIDE 25.7 mmol/L (21.0-32.0); CHLORIDE - SERUM 111 mmol/L (98-107); CREATININE - SERUM 0.9 mg/dL (0.6-1.3); GLUCOSE 81 mg/dL (74-106); MAGNESIUM - SERUM 1.8 mg/dL (1.8-2.4); PHOSPHOROUS 3.7 mg/dL (2.5-4.9); POTASSIUM - SERUM 3.9 mmol/L (3.5-5.1); SODIUM 145 mmol/L (136-145); UREA NITROGEN 11 mg/dL (7-18); eGFR NON AFRICAN AMERICAN 90 mL/min (90-120)
[2019-09-18 06:07] LABS: BASOPHILS 0.2 % (0-2); EOSINOPHILS 1.6 % (0-7); HEMATOCRIT 37.1 % (42.0-54.0); HEMOGLOBIN 11.8 g/dL (13.5-17.5); IMMATURE GRANULOCYTES 0.2 % (0-5); LYMPHOCYTES 31.9 % (15-50); MCH 29.3 pg (26.0-34.0); MCHC 31.8 g/dL (31.0-37.0); MCV 92.1 fL (80.0-100.0); MEAN PLATELET VOLUME 10.7 fL (7.4-10.4); MONOCYTES 7.5 % (2-11); NEUTROPHILS 58.6 % (40-80); PLATELET COUNT 232 10x3/uL (130-400); RBC 4.03 10x6/uL (4.20-6.10); RDW 14.5 % (11.5-14.5); WBC 6.1 10x3/uL (4.8-10.8)
--- NOTE | 2019-09-18 07:30 | NUR ---
PT C/O PAIN DUE TO PNA, ADMINISTERED PRN PAIN MEDICATION, NO OTHER NEEDS VOICED, CONTINUE WITH PLAN OF CARE/
[2019-09-18 08:01] VITALS: BP 115/48
--- NOTE | 2019-09-18 11:01 | NUR ---
LYING IN BED,WITHOUT NEEDS.CALL LIGHT IN REACH.
[2019-09-18] MEDS ORDERED: LEVAQUIN750 MG PO (11:40)
--- NOTE | 2019-09-18 11:56 | MORECARE ---
CASE MANAGEMENT DISCHARGE SUMMARY PATIENT: KARLA MARTIN UNIT: [id number] ADM DATE: 09/15/19 AGE: 64 : 53 SEX: M ROOM/BED: D.2227 AUTHOR: FELISHA PETERSON PHYSICIAN: REFERRING PHYSICIAN: KYLIE ADAMS MD DATE OF SERVICE: 09/18/19 Discharge Plan Patient Name: KARLA MARTIN Facility: [facility]:[place] : 1955 Planned Disposition: Home Anticipated Discharge Date: Discharge Date: Expected LOS: Initial Reviewer: [email or web address] Initial Review Date: 09/15/2019 Generated: 09/18/19 12:56 pm DCP- Discharge Planning Updated by [email or web address]: Rosangela Ceja on 09/16/19 9:[address] Telephone call from familia Busch/Gaudencio requesting a CB when patient has a discharge order. Portable O2 has been delivered to patient's room and home O2 will be delivered upon notification of DC order. . DCP- Discharge Planning Updated by [email or web address]: Tara Whitley on 09/15/19 1:[address] Patient is in a chronic stable state prior to discharge. CM will cotninue to follow and assist with discharge planning/needs. DCP- Discharge Planning Updated by [email or web address]: Tarakatrina Whitley on 09/15/19 1:[address] Patient Name: KARLA MARTIN Admission Status: ER Accout number: [id number] Admission Date: 09-14-2019 : 1955 Admission Diagnosis: Attending: KYLIE ADAMS Current LOS: 1 Anticipated DC Date: Planned Disposition: Home Primary Insurance: N[employer]YSMCR Discharge Planning Comments: CM met with patient to discuss discharge planning/needs, he is alone in the room. He states he lives with his daughter in a one story home. He states his daughter assists him with "washing my back", dressing and medication management. States that he broke his foot about a month ago and has been walking with a cane and a walking boot. He states that he no longer drives, so he mostly walks to where he needs to go. He states he is trying to purchase a scooter so he can get around better. I informed him that his family may be able to look at [facility] [employer] and [facility] [employer] for needed medical equipment that insurance will not pay for. I discussed rehab, SNF, home health and DME and he states other than oxygen, he does not have any need. Walk test was done and he is 86% on room air. I called Nadeem with Gaudencio and she states she will be here this afternoon. CM will cotninue to follow and assist with discharge plannig/needs. Insulation Helper: Tara Whitley DCPIA - Discharge Planning Initial Assessment Updated by [id number]: Tara Whitley on 09/15/19 2:18 pm * Is the patient Alert and Oriented? Yes * How many steps to enter\\exit or inside your home? 0/0 * PCP Imani De La Rosa in [place] * Pharmacy [facility] * Preadmission Environment Home with Family * ADLs Partial Dependent * Partial ADLs (Assistance needed) Ambulation Bathing Dressing Medication Management * Equipment Cane Other Shower Chair * Other Equipment Walking boot * List name and contact numbers for known caregivers / representatives who currently or will assist patient after discharge: Jie [facility] - [phone] [facility] [phone] * Verbal permission to speak to the caregivers and representatives has been obtained from the patient. Yes * Community resources currently utilized None * Additional services required to return to the preadmission environment? Yes * Can the patient safely return to the preadmission environment? Yes * Has this patient been hospitalized within the prior 30 days at any hospital? No External Providers External Provider: Tomeka Next Contact Date: Service Request Date: Service Type: Resolution: Reviewer: Comments: Coverage Notice Reviewer: [id number] Keyona Whitley Notice Issued Date-Time: 09/15/2019 13:45 Notice Type: Medicare Outpatient Observation Notice Notice Delivered To: Patient Relationship to Patient: Self Blood Bank Attendant Name: Delivery Method: HAND - Hand Delivered Aleida Days: Prior Verbal Notification: Recipient Understood Notice: Yes Recipient Signature: Yes Med Rec Note Co-signed by Attending: Coverage Notice Comment: DARRELL explained, signed, given, copy placed in MR Reviewer: [id number] Keyona Whitley Notice Issued Date-Time: 09/15/2019 14:03 Notice Type: Patient Choice Letter Notice Delivered To: Patient Relationship to Patient: Self Blood Bank Attendant Name: Delivery Method: HAND - Hand Delivered Aleida Days: Prior Verbal Notification: Recipient Understood Notice: Yes Recipient Signature: Yes Med Rec Note Co-signed by Attending: Coverage Notice Comment: JOSE F for Gaudencio De La O DP export: 09/16/19 10:00 Patient Name: KARLA MARTIN Page 25568 at 1156 All edits/amendments must be made on the electronic document DICTATION DATE: 09/18/19 115 LICENSED VETERINARY TECHNICIAN: AGUEDA 09/18/19 1156 RPT#: [id number] DC DATE: STATUS: ADM IN [facility] [address] [place] [address] END OF REPORT
--- NOTE | 2019-09-18 12:03 | MORECARE ---
CASE MANAGEMENT DISCHARGE SUMMARY PATIENT: KARLA MARTIN UNIT: [id number] ADM DATE: 09/15/19 AGE: 64 : 53 SEX: M ROOM/BED: D.2227 AUTHOR: FELISHA PETERSON PHYSICIAN: REFERRING PHYSICIAN: KYLIE ADAMS MD DATE OF SERVICE: 09/18/19 Discharge Plan Patient Name: KARLA MARTIN Facility: [facility]:[place] : 1955 Planned Disposition: Home Anticipated Discharge Date: Discharge Date: Expected LOS: Initial Reviewer: [email or web address] Initial Review Date: 09/15/2019 Generated: 09/18/19 1:03 pm Comments DCP- Discharge Planning Updated by [email or web address]: Tara Whitley on 09/18/19 11:[address] Patient has his home oxygen in room for discharge, I faxed Gaudencio the new qualifying walk test. He states someone is driving him home. He declines home health again, states "my daughter takes care of me." States he has been getting up fine by himself in the room. CM will continue to follow and assist with discharge planning/needs. DCP- Discharge Planning Updated by [email or web address]: Rosangela Ceja on 09/16/19 9:[address] Telephone call from familia Busch/Gaudencio requesting a CB when patient has a discharge order. Portable O2 has been delivered to patient's room and home O2 will be delivered upon notification of DC order. . DCP- Discharge Planning Updated by [email or web address]: Tara Whitley on 09/15/19 1:[address] Patient is in a chronic stable state prior to discharge. CM will cotninue to follow and assist with discharge planning/needs. DCP- Discharge Planning Updated by [email or web address]: Tara Whitley on 09/15/19 1:[address] Patient Name: KARLA MARTIN Admission Status: ER Accout number: [id number] Admission Date: 09-14-2019 : 1955 Admission Diagnosis: Attending: KYLIE ADAMS Current LOS: 1 Anticipated DC Date: Planned Disposition: Home Primary Insurance: NOVASYSMCR Discharge Planning Comments: CM met with patient to discuss discharge planning/needs, he is alone in the room. He states he lives with his daughter in a one story home. He states his daughter assists him with "washing my back", dressing and medication management. States that he broke his foot about a month ago and has been walking with a cane and a walking boot. He states that he no longer drives, so he mostly walks to where he needs to go. He states he is trying to purchase a scooter so he can get around better. I informed him that his family may be able to look at [employer] for needed medical equipment that insurance will not pay for. I discussed rehab, SNF, home health and DME and he states other than oxygen, he does not have any need. Walk test was done and he is 86% on room air. I called Nadeem with [facility] and she states she will be here this afternoon. CM will cotninue to follow and assist with discharge plannig/needs. Senior Bookkeeper: Tara Whitley DCPIA - Discharge Planning Initial Assessment Updated by [email or web address]: Tara Whitley on 09/15/19 2:18 pm * Is the patient Alert and Oriented? Yes * How many steps to enter\\exit or inside your home? 0/0 * PCP Imani De La Rosa in [place] * Pharmacy [facility] * Preadmission Environment Home with Family * ADLs Partial Dependent * Partial ADLs (Assistance needed) Ambulation Bathing Dressing Medication Management * Equipment Cane Other Shower Chair * Other Equipment Walking boot * List name and contact numbers for known caregivers / representatives who currently or will assist patient after discharge: Jie DTR - [phone] Jered Arreola - step son - [phone] * Verbal permission to speak to the caregivers and representatives has been obtained from the patient. Yes * Community resources currently utilized None * Additional services required to return to the preadmission environment? Yes * Can the patient safely return to the preadmission environment? Yes * Has this patient been hospitalized within the prior 30 days at any hospital? No Coverage Notice Reviewer: [id number] - Tara Whitley Notice Issued Date-Time: 09/15/2019 13:45 Notice Type: Medicare Outpatient Observation Notice Notice Delivered To: Patient Relationship to Patient: Self Wire Worker Name: Delivery Method: HAND - Hand Delivered Aleida Days: Prior Verbal Notification: Recipient Understood Notice: Yes Recipient Signature: Yes Med Rec Note Co-signed by Attending: Coverage Notice Comment: RAMÍREZ explained, signed, given, copy placed in MR Reviewer: [id number] Keyona Whitley Notice Issued Date-Time: 09/15/2019 14:03 Notice Type: Patient Choice Letter Notice Delivered To: Patient Relationship to Patient: Self Wire Worker Name: Delivery Method: HAND - Hand Delivered Aleida Days: Prior Verbal Notification: Recipient Understood Notice: Yes Recipient Signature: Yes Med Rec Note Co-signed by Attending: Coverage Notice Comment: JOSE F for Gaudencio Reviewer: [id number] Keyona Whitley Notice Issued Date-Time: 09/18/2019 12:02 Notice Type: IM Discharge Notice Notice Delivered To: Patient Relationship to Patient: Self Wire Worker Name: Delivery Method: HAND - Hand Delivered Aleida Days: Prior Verbal Notification: Recipient Understood Notice: Yes Recipient Signature: Yes Med Rec Note Co-signed by Attending: Coverage Notice Comment: IMM explained, signed, given, copy placed in Mr Last DP export: 09/18/19 10:56 Patient Name: KARLA MARTIN Page 15811 at 1203 All edits/amendments must be made on the electronic document DICTATION DATE: 09/18/191202 ORAL AND MAXILLOFACIAL SURGEON: AGUEDA 09/18/191202 RPT#: [id number] DC DATE: STATUS: ADM IN [facility] [address] [place] [address] END OF REPORT
[2019-09-18 13:12] VITALS: BP 104/71
--- NOTE | 2019-09-18 15:02 | MORECARE ---
CASE MANAGEMENT DISCHARGE SUMMARY PATIENT: KARLA MARTIN UNIT: [id number] ADM DATE: 09/15/19 AGE: 64 : 53 SEX: M ROOM/BED: D.2227 AUTHOR: NICHOLAS,DOC PHYSICIAN: REFERRING PHYSICIAN: KYLIE ADAMS MD DATE OF SERVICE: 09/18/19 Discharge Plan Patient Name: KARLA MARTIN Facility: [facility]:[place] : 1955 Planned Disposition: Home Anticipated Discharge Date: Discharge Date: Expected LOS: Initial Reviewer: [email or web address] Initial Review Date: 09/15/2019 Generated: 09/18/19 4:01 pm Comments DCP- Discharge Planning Updated by [id number]: Tara Whitley on 09/18/19 1:[address] Patient states that he does not have a ride home. States his daughter does not have a car. States he does not have any money. Taxi approved by Ami Harris to his home for 7.25. DCP- Discharge Planning Updated by [email or web address]: Tara Whitley on 09/18/19 11:[address] Patient has his home oxygen in room for discharge, I faxed Gaudencio the new qualifying walk test. He states someone is driving him home. He declines home health again, states "my daughter takes care of me." States he has been getting up fine by himself in the room. CM will continue to follow and assist with discharge planning/needs. DCP- Discharge Planning Updated by [id number]: Rosangela Ceja on 09/16/19 9:[address] Telephone call from familia Busch/Gaudencio requesting a CB when patient has a discharge order. Portable O2 has been delivered to patient's room and home O2 will be delivered upon notification of DC order. . DCP- Discharge Planning Updated by [email or web address]: Tara Whitley on 09/15/19 1:[address] Patient is in a chronic stable state prior to discharge. CM will cotninue to follow and assist with discharge planning/needs. DCP- Discharge Planning Updated by [id number]: Tara Whitley on 09/15/19 1:[address] Patient Name: KARLA MARTIN Admission Status: ER Accout number: [id number] Admission Date: 09-14-2019 : 1955 Admission Diagnosis: Attending: KYLIE ADAMS Current LOS: 1 Anticipated DC Date: Planned Disposition: Home Primary Insurance: [facility] Discharge Planning Comments: CM met with patient to discuss discharge planning/needs, he is alone in the room. He states he lives with his daughter in a one story home. He states his daughter assists him with "washing my back", dressing and medication management. States that he broke his foot about a month ago and has been walking with a cane and a walking boot. He states that he no longer drives, so he mostly walks to where he needs to go. He states he is trying to purchase a scooter so he can get around better. I informed him that his family may be able to look at [employer] and [email or web address] for needed medical equipment that insurance will not pay for. I discussed rehab, SNF, home health and DME and he states other than oxygen, he does not have any need. Walk test was done and he is 86% on room air. I called Nadeem with [facility] and she states she will be here this afternoon. CM will cotninue to follow and assist with discharge plannig/needs. Production Finisher: Tara Gutierrez [facility] - Discharge Planning Initial Assessment Updated by [email or web address]: Tara Bluerina on 09/15/19 2:18 pm * Is the patient Alert and Oriented? Yes * How many steps to enter\\exit or inside your home? 0/0 * PCP Imani De La Rosa in [place] * Pharmacy [facility] [facility] * Preadmission Environment Home with Family * ADLs Partial Dependent * Partial ADLs (Assistance needed) Ambulation Bathing Dressing Medication Management * Equipment Cane Other Shower Chair * Other Equipment Walking boot * List name and contact numbers for known caregivers / representatives who currently or will assist patient after discharge: Jie - DTR - [phone] Jered Arreola - step son - [phone] * Verbal permission to speak to the caregivers and representatives has been obtained from the patient. Yes * Community resources currently utilized None * Additional services required to return to the preadmission environment? Yes * Can the patient safely return to the preadmission environment? Yes * Has this patient been hospitalized within the prior 30 days at any hospital? No Coverage Notice Reviewer: [id number] Whitley Notice Issued Date-Time: 09/15/2019 13:45 Notice Type: Medicare Outpatient Observation Notice Notice Delivered To: Patient Relationship to Patient: Self Cotton Gin Yard Supervisor Name: Delivery Method: HAND - Hand Delivered Aleida Days: Prior Verbal Notification: Recipient Understood Notice: Yes Recipient Signature: Yes Med Rec Note Co-signed by Attending: Coverage Notice Comment: RAMÍREZ explained, signed, given, copy placed in MR Reviewer: [id number] Whitley Notice Issued Date-Time: 09/15/2019 14:03 Notice Type: Patient Choice Letter Notice Delivered To: Patient Relationship to Patient: Self Cotton Gin Yard Supervisor Name: Delivery Method: HAND - Hand Delivered Aleida Days: Prior Verbal Notification: Recipient Understood Notice: Yes Recipient Signature: Yes Med Rec Note Co-signed by Attending: Coverage Notice Comment: JOSE F Ratliff Reviewer: [id number] Whitley Notice Issued Date-Time: 09/18/2019 12:02 Notice Type: IM Discharge Notice Notice Delivered To: Patient Relationship to Patient: Self Cotton Gin Yard Supervisor Name: Delivery Method: HAND - Hand Delivered Aleida Days: Prior Verbal Notification: Recipient Understood Notice: Yes Recipient Signature: Yes Med Rec Note Co-signed by Attending: Coverage Notice Comment: IMM explained, signed, given, copy placed in Mr Last DP export: 09/18/19 11:03 Patient Name: KARLA MARTIN Page [id number] at 1502 All edits/amendments must be made on the electronic document DICTATION DATE: 09/18/19 1501 EVP HEAD OF [employer] EXPERIENCE STRATEGY: AGUEDA 09/18/19 1501 RPT#: [id number] DC DATE: STATUS: ADM IN [facility] [address] [place] [address] END OF REPORT
--- NOTE | 2019-09-20 09:47 | MORECARE ---
CASE MANAGEMENT DISCHARGE SUMMARY PATIENT: KARLA MARTIN UNIT: [id number] ADM DATE: 09/15/19 AGE: 64 : 51 SEX: M ROOM/BED: D.2227 AUTHOR: NICHOLAS,DOC PHYSICIAN: REFERRING PHYSICIAN: KYLIE ADAMS MD DATE OF SERVICE: 09/20/19 Discharge Plan Patient Name: KARLA MARTIN Facility: [facility]:[place] : 1955 Planned Disposition: Home Anticipated Discharge Date: Discharge Date: 09/18/2019 Expected LOS: Initial Reviewer: [id number] Initial Review Date: 09/15/2019 Generated: 09/20/19 10:47 am DCP- Discharge Planning Updated by [email or web address]: Tara Whitley on 09/18/19 1:[address] Patient states that he does not have a ride home. States his daughter does not have a car. States he does not have any money. Taxi approved by Ami Harris to his home for 725. DCP- Discharge Planning Updated by [id number]: Tara Whitley on 09/18/19 11:[address] Patient has his home oxygen in room for discharge, I faxed Gaudencio the new qualifying walk test. He states someone is driving him home. He declines home health again, states "my daughter takes care of me." States he has been getting up fine by himself in the room. CM will continue to follow and assist with discharge planning/needs. DCP- Discharge Planning Updated by [email or web address]: Rosangela Ceja on 09/16/19 9:[address] Telephone call from familia Busch/Gaudencio requesting a CB when patient has a discharge order. Portable O2 has been delivered to patient's room and home O2 will be delivered upon notification of DC order. . DCP- Discharge Planning Updated by [email or web address]: Tara Whitley on 09/15/19 1:[address] Patient is in a chronic stable state prior to discharge. CM will cotninue to follow and assist with discharge planning/needs. DCP- Discharge Planning Updated by [id number]: Tara Whitley on 09/15/19 1:[address] Patient Name: KARLA MARTIN Admission Status: ER Accout number: [id number] Admission Date: 09-14-2019 : 1955 Admission Diagnosis: Attending: KYLIE ADAMS Current LOS: 1 Anticipated DC Date: Planned Disposition: Home Primary Insurance: [facility] Discharge Planning Comments: CM met with patient to discuss discharge planning/needs, he is alone in the room. He states he lives with his daughter in a one story home. He states his daughter assists him with "washing my back", dressing and medication management. States that he broke his foot about a month ago and has been walking with a cane and a walking boot. He states that he no longer drives, so he mostly walks to where he needs to go. He states he is trying to purchase a scooter so he can get around better. I informed him that his family may be able to look at [employer] and [employer] for needed medical equipment that insurance will not pay for. I discussed rehab, SNF, home health and DME and he states other than oxygen, he does not have any need. Walk test was done and he is 86% on room air. I called Nadeem with [facility] and she states she will be here this afternoon. CM will cotninue to follow and assist with discharge plannig/needs. Technical Proposal Writer: Tara Whitley DCPIA - Discharge Planning Initial Assessment Updated by [email or web address]: Tara Whitley on 09/15/19 2:18 pm * Is the patient Alert and Oriented? Yes * How many steps to enter\\exit or inside your home? 0/0 * PCP Imani De La Rosa in [place] * Pharmacy [facility] * Preadmission Environment Home with Family * ADLs Partial Dependent * Partial ADLs (Assistance needed) Ambulation Bathing Dressing Medication Management * Equipment Cane Other Shower Chair * Other Equipment Walking boot * List name and contact numbers for known caregivers / representatives who currently or will assist patient after discharge: Jie - DTR - [phone] Jered Arreola - step son - [phone] * Verbal permission to speak to the caregivers and representatives has been obtained from the patient. Yes * Community resources currently utilized None * Additional services required to return to the preadmission environment? Yes * Can the patient safely return to the preadmission environment? Yes * Has this patient been hospitalized within the prior 30 days at any hospital? No Coverage Notice Reviewer: [id number] Whitley Notice Issued Date-Time: 09/15/2019 13:45 Notice Type: Medicare Outpatient Observation Notice Notice Delivered To: Patient Relationship to Patient: Self Department Store Door Greeter Name: Delivery Method: HAND - Hand Delivered Aleida Days: Prior Verbal Notification: Recipient Understood Notice: Yes Recipient Signature: Yes Med Rec Note Co-signed by Attending: Coverage Notice Comment: RAMÍREZ explained, signed, given, copy placed in MR Reviewer: [id number] Whitley Notice Issued Date-Time: 09/15/2019 14:03 Notice Type: Patient Choice Letter Notice Delivered To: Patient Relationship to Patient: Self Department Store Door Greeter Name: Delivery Method: HAND - Hand Delivered Aleida Days: Prior Verbal Notification: Recipient Understood Notice: Yes Recipient Signature: Yes Med Rec Note Co-signed by Attending: Coverage Notice Comment: JOSE F sommers Gaudencio Reviewer: [id number] Whitley Notice Issued Date-Time: 09/18/2019 12:02 Notice Type: IM Discharge Notice Notice Delivered To: Patient Relationship to Patient: Self Department Store Door Greeter Name: Delivery Method: HAND - Hand Delivered Aleida Days: Prior Verbal Notification: Recipient Understood Notice: Yes Recipient Signature: Yes Med Rec Note Co-signed by Attending: Coverage Notice Comment: IMM explained, signed, given, copy placed in Mr Last DP export: 09/18/19 2:02 Patient Name: KARLA MARTIN Page [id number] at 0947 All edits/amendments must be made on the electronic document DICTATION DATE: 09/20/19945 ENVIRONMENTAL STUDIES FACULTY MEMBER: AGUEDA 09/20/19945 RPT#: [id number] DC DATE:09/18/19 STATUS: DIS IN [facility] [address] [place] [address] END OF REPORT
== END 2019-09-18 15:35 | disposition home or self-care (01) | DRG 195 ==
LOC: D.ER 17:59 → D.MS 20:38 → OBSVTIME 20:43 → D.MS 09-15 17:44
PROVIDERS: Family Medicine; ADMIT Emergency Medicine; ATTEND Emergency Medicine
DX: J18.9 Pneumonia, unspecified organism (principal); R30.0 Dysuria; I95.9 Hypotension, unspecified; D64.9 Anemia, unspecified; J45.909 Unspecified asthma, uncomplicated; I10 Essential (primary) hypertension; K21.9 Gastro-esophageal reflux disease without esophagitis; E78.5 Hyperlipidemia, unspecified; Z95.0 Presence of cardiac pacemaker; I25.10 Atherosclerotic heart disease of native coronary artery without angina pectoris; E11.40 Type 2 diabetes mellitus with diabetic neuropathy, unspecified